=== PATIENT | female | born 1945 | race Caucasian/White ===

== ENCOUNTER → 2016-12-04 | Outpatient (CLI) | payer MEDICARE, OTHER ==
[~2016-12-04] MED LIST: METF10002 PO; OMEP40CA6 PO
[2016-12-04 15:32] LABS: BLOOD UREA NITROGEN 16 mg/dL (7-18)
[2016-12-04 15:36] LABS: ASPARTATE AMINO TRANSFERASE 12 U/L (15-37)
== END | disposition home or self-care (01) ==
LOC: STAR 14:15
PROVIDERS: ATTEND Internal Medicine
DX: Z01.818 Encounter for other preprocedural examination (principal); R94.31 Abnormal electrocardiogram [ECG] [EKG]; K22.70 Barrett's esophagus without dysplasia
CPT/HCPCS: 36415; 80053; 93005

== ENCOUNTER 2016-12-10 05:43 | Day surgery (SDC) | payer MEDICARE, OTHER ==
[2016-12-04 14:52] VITALS: BP 172/108
[~2016-12-10] VITALS: Ht 160 cm; Wt 53.7 kg
[2016-12-10] MEDS ORDERED: LIDOCAINE 1%, 2ML ONE (06:43)
[2016-12-10] MEDS ORDERED: LACTATED RINGERS 1,000 ML IV SCH (07:04)
[2016-12-10] MEDS ORDERED: MIDAZOLAM 1 MG/ML, 2ML ONE (07:04)
[2016-12-10] MEDS ORDERED: PROPOFOL 10 MG/ML, 20ML ONE ×6 (07:05→07:41)
[2016-12-10] MEDS ORDERED: SUCCINYLCHOLINE 20 MG/ML, 10ML ONE (07:10)
[2016-12-10] MEDS ORDERED: ONDANSETRON 2MG/ML, 2ML IVPush PRN (07:30)
[2016-12-10] MEDS ORDERED: HYDROcodone/APAP 7.5-325MG/15ML UDC PO PRN (07:30)
[2016-12-10] MEDS ORDERED: LIDOCAINE 1%, 2ML SQ PRN (07:30)
[2016-12-10] MEDS ORDERED: OXYcodone 5 MG/5 ML ORAL.SOL UDC PO PRN (07:30)
[2016-12-10] MEDS ORDERED: HYDROmorphone 1 MG/ML, 1ML IV PRN (07:30)
[2016-12-10] MEDS ORDERED: LABETALOL 5MG/ML, 20ML IV PRN (07:30)
[2016-12-10] MEDS ORDERED: ACETAMINOPHEN 325 MG TABLET PO PRN (07:30)
[2016-12-10] MEDS ORDERED: FENTANYL PF 100 MCG/2ML IV PRN (07:30)
[2016-12-10] MEDS ORDERED: ONDANSETRON 2MG/ML, 2ML ONE (07:41)
[2016-12-10] MEDS ORDERED: LABETALOL 5MG/ML, 20ML ONE (07:41)
[2016-12-10] MEDS ORDERED: FENTANYL PF 100 MCG/2ML ONE (08:14)
[2016-12-10] MEDS ORDERED: ACETAMINOPHEN 650 MG/20.3 ML UDC ONE (08:57)
== END 2016-12-10 10:05 | disposition home or self-care (01) ==
LOC: OUT 05:43
PROVIDERS: ATTEND Internal Medicine
DX: K22.711 Barrett's esophagus with high grade dysplasia (principal); E11.9 Type 2 diabetes mellitus without complications; E78.5 Hyperlipidemia, unspecified; Z98.890 Other specified postprocedural states
CPT/HCPCS: 43259; 43270; 82962; J0330; J2250; J2405; J2704; J3010; J3490; J7120

== ENCOUNTER 2017-02-11 07:59 | Day surgery (SDC) | payer MEDICARE, OTHER ==
[~2017-02-11] VITALS: Ht 160 cm; Wt 53.1 kg
[2017-02-11] MEDS ORDERED: LACTATED RINGERS 1,000 ML IV SCH (08:29)
[2017-02-11] MEDS ORDERED: LIDOCAINE 1%, 2ML SQ PRN (08:30)
[2017-02-11 08:32] VITALS: BP 159/96
[2017-02-11] MEDS ORDERED: LIDOCAINE 1%, 2ML ONE (08:42)
[2017-02-11] MEDS ORDERED: FENTANYL PF 100 MCG/2ML ONE ×2 (09:18→10:43)
[2017-02-11] MEDS ORDERED: MIDAZOLAM 1 MG/ML, 2ML ONE ×2 (09:18→10:43)
[2017-02-11] MEDS ORDERED: PROPOFOL 50 ML ONE (09:22)
[2017-02-11] MEDS ORDERED: ONDANSETRON 2MG/ML, 2ML ONE (09:36)
[2017-02-11] MEDS ORDERED: DEXAMETHASONE 4 MG/ML, 1ML ONE (09:36)
[2017-02-11] MEDS ORDERED: HYDROmorphone 1 MG/ML, 1ML IV PRN (10:00)
[2017-02-11] MEDS ORDERED: ONDANSETRON 2MG/ML, 2ML IVPush PRN (10:00)
[2017-02-11] MEDS ORDERED: OXYcodone 5 MG/5 ML ORAL.SOL UDC PO PRN (10:00)
[2017-02-11] MEDS ORDERED: PROMETHAZINE 25 MG/ML, 1ML IV PRN (10:00)
[2017-02-11] MEDS ORDERED: MEPERIDINE/PF 25MG/0.5ML IVPush PRN (10:00)
[2017-02-11] MEDS ORDERED: FENTANYL PF 100 MCG/2ML IV PRN (10:00)
[2017-02-11] MEDS ORDERED: LABETALOL 5MG/ML, 20ML IV PRN (10:00)
[2017-02-11] MEDS ORDERED: hydrALAzine 20 MG/ML, 1ML IV PRN (10:00)
== END 2017-02-11 11:10 ==
LOC: OUT 07:59
PROVIDERS: ATTEND Internal Medicine
DX: K22.711 Barrett's esophagus with high grade dysplasia (principal); E11.9 Type 2 diabetes mellitus without complications; K21.9 Gastro-esophageal reflux disease without esophagitis
CPT/HCPCS: 43270; 82962; J1100; J2250; J2405; J2704; J3010; J3490; J7120